=== PATIENT | male | born 1960 | race Caucasian/White ===

== ENCOUNTER 2019-04-08 16:47 | Emergency (ER) | payer SELFPAY ==
[~2019-04-08] VITALS: Ht 172.7 cm; Wt 87.1 kg
--- NOTE | 2019-04-08 17:11 | NUR ---
[id number] C/O DIARRHEA FOR THE PAST 8 HOURS. DENIES N/V. APPEARS VERY UNCOMFORTABLE, BUT NO ACUTE DISTRESS NOTED. PT IS AMB, AOX3, VSS, RR EVEN AND UNLABORED ON RA. DENIES DIZZINESS, WEAKNESS. MADE COMFORTABLE, READY FOR EVAL.
[2019-04-08] MEDS ORDERED: ONDANSETRON HCL/PF 4 MG/2 ML VIAL ONE (17:17)
[2019-04-08] MEDS ORDERED: IV NS 0.9% 1,000 ML BAG IV ONE (17:30)
[2019-04-08] MEDS ORDERED: ONDANSETRON HCL/PF 4 MG/2 ML VIAL IVP ONE (17:30)
[2019-04-08 17:35] LABS: BASOPHILS % (AUTO) 0.4 % (0.0-2.0); EOSINOPHILS % (AUTO) 1.6 % (0.0-6.0); HEMATOCRIT 49 % (39-51); HEMOGLOBIN 16.2 g/dL (13.5-17.5); LYMPHOCYTES # (AUTO) 2.2 /CMM (0.8-4.8); LYMPHOCYTES % (AUTO) 31.7 % (20.0-44.0); MEAN CORPUSCULAR HGB CONC 33 g/dl (31.0-36.0); MEAN CORPUSCULAR VOLUME 95 fL (80-96); MONOCYTES # (AUTO) 0.7 /CMM (0.1-1.30); MONOCYTES % (AUTO) 10.5 % (2.0-12.0); NEUTROPHILS % (AUTO) 55.8 % (43.0-81.0); PLATELET COUNT (AUTO) 178 /CMM (150-450); RED BLOOD CELL COUNT(AUTO) 5.08 MIL/uL (4.5-6.0); WHITE BLOOD COUNT (AUTO) 7.1 K/uL (4.3-11.0)
[2019-04-08 17:41] LABS: CALCIUM, SERUM 8.3 mg/dL (8.5-10.1); CREATININE 0.7 mg/dL (0.6-1.3); POTASSIUM 3.8 mmol/L (3.5-5.1)
--- NOTE | 2019-04-08 18:25 | NUR ---
CALLED DIETARY FOR FOOD TRAY
--- NOTE | 2019-04-08 18:37 | NUR ---
PT PROVIDED FOOD TRAY
--- NOTE | 2019-04-08 19:21 | NUR ---
PT PROVIDED TAP CARD,.
--- NOTE | 2019-04-08 19:32 | NUR ---
Patient given written and verbal discharge instructions. Patient verbalizes understanding of instructions. Patient is ambulatory with steady gait. Refuses offer of fpc placement. Patient given list of available shelters in surrounding area. IV removed. Catheter intact and site benign. Pressure and 4x4 applied to site. No bleeding noted.
[2019-04-08 19:40] VITALS: BP 114/78
== END 2019-04-08 19:41 | disposition home or self-care (01) ==
LOC: ER 16:50
DX: R19.7 Diarrhea, unspecified (principal); Z59.0 Homelessness
CPT/HCPCS: 36415; 80048; 85025; 96361; 96374; 99283; J2405; J7030

== ENCOUNTER 2019-04-23 16:47 | Emergency (ER) | payer MEDICAID ==
[~2019-04-23] VITALS: Ht 172.7 cm; Wt 93.9 kg
--- NOTE | 2019-04-23 16:50 | NUR ---
AAOX3, [id number] C/O GENERALIZED WEAKNESS. RR IS EVEN AND UNLABORED WITH NAD NOTED. SKIN IS WARM AND DRY. AWAITING MD FOR EVAL.
[2019-04-23 17:23] LABS: BASOPHILS % (AUTO) 0.3 % (0.0-2.0); EOSINOPHILS % (AUTO) 0.8 % (0.0-6.0); HEMATOCRIT 42 % (39-51); HEMOGLOBIN 14.5 g/dL (13.5-17.5); LYMPHOCYTES # (AUTO) 0.8 /CMM (0.8-4.8); LYMPHOCYTES % (AUTO) 14.6 % (20.0-44.0); MEAN CORPUSCULAR HGB CONC 34 g/dl (31.0-36.0); MEAN CORPUSCULAR VOLUME 93 fL (80-96); MONOCYTES # (AUTO) 0.6 /CMM (0.1-1.30); MONOCYTES % (AUTO) 11.3 % (2.0-12.0); NEUTROPHILS # (AUTO) 3.8 /CMM (1.8-8.9); PLATELET COUNT (AUTO) 181 /CMM (150-450); RED BLOOD CELL COUNT(AUTO) 4.51 MIL/uL (4.5-6.0); WHITE BLOOD COUNT (AUTO) 5.3 K/uL (4.3-11.0)
[2019-04-23] MEDS ORDERED: BENZONATATE 100 MG CAPSULE PO PRN (17:30)
[2019-04-23] MEDS ORDERED: IV NS 0.9% 1,000 ML BAG IV ONE (17:30)
[2019-04-23 17:34] LABS: CALCIUM, SERUM 7.8 mg/dL (8.5-10.1); CARBON DIOXIDE 30 mmol/L (21-32); CHLORIDE 100 mmol/L (98-107); CREATININE 0.9 mg/dL (0.6-1.3); GLUCOSE 98 mg/dL (74-106); POTASSIUM 3.6 mmol/L (3.5-5.1); SODIUM SERUM 134 mmol/L (136-145); UREA NITROGEN, BLOOD 20 mg/dL (7-18)
[2019-04-23 17:49] LABS: ALANINE AMINOTRANSFERASE 96 U/L (12-78); ALBUMIN 2.2 g/dL (3.4-5.0); ALKALINE PHOSPHATASE 86 U/L (46-116); ASPARTATE AMINOTRANSFERASE 166 U/L (15-37); BILIRUBIN,DIRECT 0.4 mg/dL (0.0-0.2); BILIRUBIN,TOTAL 0.8 mg/dL (0.2-1.0); TOTAL PROTEIN, SERUM 6.1 g/dL (6.4-8.2)
--- NOTE | 2019-04-23 18:20 | NUR ---
JOSE SEYMOUR AT FOR RE-EVAL.
[2019-04-23] MEDS ORDERED: LEVOFLOXACIN (750 MG) 750 MG TABLET ONE (18:42)
[2019-04-23] MEDS ORDERED: LEVOFLOXACIN (750 MG) 750 MG TABLET PO SCH (19:00)
--- NOTE | 2019-04-23 20:52 | NUR ---
PT OK TO DISCHARGE PER DR CARDENAS. IV removed. Catheter intact and site benign. Pressure and 4x4 applied to site. No bleeding noted.Patient discharged to home in stable condition. Written and verbal after care instructions given. Patient verbalizes understanding of instruction.Patient is awake and alert to self, day, and place. PT ambulatory with a steady gait
[2019-04-23 21:48] VITALS: BP 124/80
== END 2019-04-23 21:48 | disposition home or self-care (01) ==
LOC: ER 16:51
DX: J18.9 Pneumonia, unspecified organism (principal); Z59.0 Homelessness
CPT/HCPCS: 36415; 71046; 80048; 80076; 83605; 84484; 85025; 85730; 87040 ×2; 93005; 99284; J7030

== ENCOUNTER 2020-05-26 04:45 | Emergency (ER) | payer MEDICAID, OTHER ==
[~2020-05-26] VITALS: Ht 165.1 cm; Wt 100.2 kg
[2020-05-26 04:45] VITALS: BP 110/70
== END 2020-05-26 05:43 | disposition home or self-care (01) ==
LOC: ER 04:46
DX: R53.1 Weakness (principal); Z59.0 Homelessness
CPT/HCPCS: 82962-TC